=== PATIENT | male | born 1955 | race Caucasian/White ===

== ENCOUNTER 2024-07-06 06:19 | Emergency (ER) | payer MEDICARE, SELFPAY ==
[~2024-07-06] VITALS: Ht 177.8 cm; Wt 93.2 kg
[2024-07-06] MEDS ORDERED: ATOR80TA59 (06:31)
[2024-07-06] MEDS ORDERED: ENTR1TAB7 (06:31)
[2024-07-06] MEDS ORDERED: METO1TAB87 (06:31)
[2024-07-06] MEDS ORDERED: TREL1AER (06:38)
[2024-07-06 06:57] LABS: BASO # 0.1 10^3/uL (0.0-0.2); BASO % 1.1 % (0.0-1.0); EOS # 0.2 10^3/uL (0.0-0.5); EOS % 1.9 % (0.0-3.0); HEMATOCRIT 43.8 % (42.0-52.0); HEMOGLOBIN 14.5 g/dl (13.5-17.5); LYMPH # 3.5 10^3/uL (1.5-5.0); LYMPH % 28.1 % (24.0-44.0); MEAN CORPUSCULAR HEMOGLOBIN 28.9 pg (27.0-33.0); MEAN CORPUSCULAR HGB CONC 33.1 g/dl (32.0-36.5); MEAN CORPUSCULAR VOLUME 87.4 fl (80.0-96.0); MONO % 7.8 % (2.0-8.0); NEUTROPHILS # 7.6 10^3/uL (1.5-8.5); NEUTROPHILS % 60.7 % (36.0-66.0); PLATELET COUNT, AUTOMATED 332 10^3/uL (150-450); RED BLOOD COUNT 5.01 10^6/uL (4.30-6.10); WHITE BLOOD COUNT 12.5 10^3/uL (4.0-10.0)
[2024-07-06 07:07] LABS: INR 0.92; PROTHROMBIN TIME 12.7 SECONDS (12.5-14.5)
[2024-07-06 07:36] LABS: CK-MB VALUE MASS < 1.0 NG/ML (<3.6)
[2024-07-06 07:37] LABS: LIPASE 43 U/L (12-53)
[2024-07-06 07:38] LABS: CPK CREATINE PHOSPHOKINASE 97 U/L (46-171); MB/CK RELATIVE INDEX 1.03 (< OR =4)
[2024-07-06 07:39] LABS: ALBUMIN 3.7 G/DL (3.2-5.2); ALKALINE PHOSPHATASE 96 U/L (40-129); ALT/SGPT 20 U/L (7.0-40); AST/SGOT 13 U/L (<34); BILIRUBIN,DIRECT 0.2 MG/DL (<0.4); BILIRUBIN,TOTAL 0.7 MG/DL (0.3-1.2); BLOOD UREA NITROGEN 16 MG/DL (9-23); CARBON DIOXIDE LEVEL 24 MMOL/L (20-31); CHLORIDE LEVEL 105 MMOL/L (98-107); CREATININE FOR GFR 0.97 MG/DL (0.70-1.30); GLOMERULAR FILTRATION RATE > 60.0 (>49); GLUCOSE, FASTING 162 MG/DL (74-106); POTASSIUM SERUM 4.4 MMOL/L (3.5-5.1); SODIUM LEVEL 138 MMOL/L (136-145); TOTAL PROTEIN 7.4 G/DL (5.7-8.2)
[2024-07-06 10:15] LABS: CK-MB VALUE MASS < 1.0 NG/ML (<3.6)
[2024-07-06 10:16] LABS: CPK CREATINE PHOSPHOKINASE 97 U/L (46-171); MB/CK RELATIVE INDEX 1.03 (< OR =4)
[2024-07-06 10:35] VITALS: TEMP 97.5
[2024-07-06] MEDS: ALBUTEROL SULFATE 2.5MG/0.5ML INH NEB SOLN NEB ONE (10:50)
[2024-07-06 11:30] VITALS: BP 192/82
[2024-07-06 11:34] VITALS: O2SAT 95
== END 2024-07-06 11:40 | disposition home or self-care (01) ==
LOC: M ED 06:19
DX: R07.9 Chest pain, unspecified (principal); I10 Essential (primary) hypertension; E78.5 Hyperlipidemia, unspecified; K21.9 Gastro-esophageal reflux disease without esophagitis; F12.10 Cannabis abuse, uncomplicated; Z79.899 Other long term (current) drug therapy